=== PATIENT | female | born 1990 | race Two or more races ===

== ENCOUNTER 2017-10-02 22:27 | Emergency (ER) | payer OTHER ==
[~2017-10-02] VITALS: Ht 165.1 cm; Wt 61.7 kg
[~2017-10-02 22:27] MED LIST: CEFADROXIL500 MG PO; ORTHO TRI-7 DAYSX1
[2017-10-03] MEDS ORDERED: ZANTAC300 MG PO (03:32)
[2017-10-03] MEDS ORDERED: ZOFRAN ODT8 MG PO (03:32)
[2017-10-03] MEDS ORDERED: DICY20TA PO (03:32)
[2017-10-03] MEDS ORDERED: PROBIOTIC & AC1 EACH PO (03:32)
== END 2017-10-03 03:57 | disposition home or self-care (01) ==
LOC: ER 22:27
DX: K52.9 Noninfective gastroenteritis and colitis, unspecified (principal); E86.0 Dehydration

== ENCOUNTER 2017-10-05 13:46 | Emergency (ER) | payer OTHER ==
[~2017-10-05] VITALS: Ht 170.2 cm; Wt 60.8 kg
[~2017-10-05 13:46] MED LIST changes: +DICY20TA PO; +PROBIOTIC & AC1 EACH PO; +ZANTAC300 MG PO; +ZOFRAN ODT8 MG PO
== END 2017-10-05 17:25 | disposition home or self-care (01) ==
LOC: ER 13:46
DX: K52.9 Noninfective gastroenteritis and colitis, unspecified (principal)

== ENCOUNTER 2018-10-09 02:37 | Emergency (ER) | payer OTHER ==
[~2018-10-09] VITALS: Ht 170.2 cm; Wt 62.1 kg
[2018-10-09] MEDS ORDERED: MEDROLPACK PO (06:04)
[2018-10-09] MEDS ORDERED: CETIRIZINE HCL10 MG PO (06:04)
== END 2018-10-09 06:15 | disposition home or self-care (01) ==
LOC: ER 02:37
DX: T78.1XXA Other adverse food reactions, not elsewhere classified, initial encounter (principal); R21 Rash and other nonspecific skin eruption

== ENCOUNTER 2018-12-25 19:45 | Emergency (ER) | payer OTHER ==
[~2018-12-25] VITALS: Ht 170.2 cm; Wt 61.2 kg
[~2018-12-25 19:45] MED LIST changes: +CETIRIZINE HCL10 MG PO; +MEDROLPACK PO
== END 2018-12-25 20:54 | disposition home or self-care (01) ==
LOC: ER 19:45
DX: S61.226A Laceration with foreign body of right little finger without damage to nail, initial encounter (principal); W26.0XXA Contact with knife, initial encounter; Y93.89 Activity, other specified; Y92.090 Kitchen in other non-institutional residence as the place of occurrence of the external cause; Y99.8 Other external cause status

== ENCOUNTER → 2019-03-16 | Outpatient (CLI) | payer OTHER | END | disposition home or self-care (01) | LOC: SONOGRAMA 14:35 | DX: E04.1 Nontoxic single thyroid nodule (principal) ==

== ENCOUNTER 2019-06-14 10:04 | Outpatient (CLI) | payer OTHER | END 2019-06-14 15:34 | disposition home or self-care (01) | LOC: LAB 10:04 | DX: O09.892 Supervision of other high risk pregnancies, second trimester (principal); Z31.430 Encounter of female for testing for genetic disease carrier status for procreative management; Z31.5 Encounter for procreative genetic counseling ==

== ENCOUNTER 2019-07-31 09:18 | Outpatient (CLI) | payer OTHER | END 2019-07-31 10:00 | disposition home or self-care (01) | LOC: LAB 09:18 | DX: O09.892 Supervision of other high risk pregnancies, second trimester (principal) ==

== ENCOUNTER 2019-09-13 17:12 | Outpatient (CLI) | payer OTHER ==
[2019-09-13] MEDS ORDERED: PRENATABS RX T1 EACH PO (17:23)
[2019-09-14] MEDS ORDERED: ANTI-DIARRHEAL2 M1 PO (13:04)
[2019-09-14] MEDS ORDERED: ZOFRAN8 MG PO (13:04)
[2019-09-14] MEDS ORDERED: PEPCID AC20 MG PO (13:04)
== END 2019-09-14 13:39 | disposition home or self-care (01) ==
LOC: OBS/DEL 17:12
DX: O21.8 Other vomiting complicating pregnancy (principal); O35.8XX0 Maternal care for other (suspected) fetal abnormality and damage, not applicable or unspecified; O26.893 Other specified pregnancy related conditions, third trimester; R19.7 Diarrhea, unspecified

== ENCOUNTER → 2019-10-05 15:53 | Outpatient (CLI) | payer OTHER ==
[~2019-10-05 15:53] MED LIST changes: +ANTI-DIARRHEAL2 M1 PO; +PEPCID AC20 MG PO; +PRENATABS RX T1 EACH PO; +ZOFRAN8 MG PO
== END | disposition home or self-care (01) ==
LOC: LAB 15:53
DX: R51 Headache (principal); J20.8 Acute bronchitis due to other specified organisms; J10.89 Influenza due to other identified influenza virus with other manifestations; O09.892 Supervision of other high risk pregnancies, second trimester; O16.3 Unspecified maternal hypertension, third trimester; Z11.4 Encounter for screening for human immunodeficiency virus [HIV]

== ENCOUNTER 2019-11-01 09:07 | Inpatient (IN) | payer OTHER ==
[~2019-11-01] VITALS: Ht 170.2 cm; Wt 75.7 kg
== END 2019-11-15 09:45 | disposition home or self-care (01) | DRG 807 ==
LOC: LDR 11-13 08:31 → SURG-SUITE 11-13 13:54 → SURG 11-20 15:15
PROVIDERS: ADMIT Obstetrics & Gynecology
PROC: 10E0XZZ Delivery of Products of Conception, External Approach (ICD-10-PCS; principal; 2019-11-13)
PROC: 4A1HXFZ Monitoring of Products of Conception, Cardiac Rhythm, External Approach (ICD-10-PCS; 2019-11-13)
DX: O99.824 Streptococcus B carrier state complicating childbirth (principal); Z37.0 Single live birth; Z3A.39 39 weeks gestation of pregnancy

== ENCOUNTER 2020-12-02 13:54 | Outpatient (CLI) | payer OTHER | END 2020-12-02 14:26 | disposition home or self-care (01) | LOC: MAMO-SONO 13:54 → SONOGRAMA 13:54 | DX: N60.01 Solitary cyst of right breast (principal); N60.02 Solitary cyst of left breast; N64.89 Other specified disorders of breast; Z12.31 Encounter for screening mammogram for malignant neoplasm of breast; N83.8 Other noninflammatory disorders of ovary, fallopian tube and broad ligament ==

== ENCOUNTER 2022-11-16 05:55 | Day surgery (SDC) | payer OTHER | END 2022-11-16 15:25 | disposition home or self-care (01) | LOC: CIR.AMB 05:55 | PROVIDERS: ATTEND Obstetrics & Gynecology | DX: R87.613 High grade squamous intraepithelial lesion on cytologic smear of cervix (HGSIL) (principal); N72 Inflammatory disease of cervix uteri; Z91.013 Allergy to seafood ==

== ENCOUNTER 2022-11-27 19:57 | Inpatient (IN) | payer OTHER ==
[~2022-11-27] VITALS: Ht 167.6 cm; Wt 65.8 kg
--- NOTE | 2022-11-27 20:02 | NUR ---
PTE ALERTA,ESTABLE Y ORIENTADA.ESTA REFIERE QUE HOY EN LA TARDE COMENZO CON EL SANGRADO VAGINAL
--- NOTE | 2022-11-27 20:21 | NUR ---
PACIENTE EVALUADA POR DR. ELKE PEREZ ORDENA TRATAMIENTO. SE EDUCA A PACIENTE ACERCA DE TRATAMIENTO ORDENADO Y REFIERE ENTENDER. SE COLECTAN MUESTRAS DE LABORATORIO Y CANALIZACION MEDIANTE MEDIDAS ASEPTICAS. PACIENTE EN ESPERA DE RESULTADOS DE LABORATORIO
--- NOTE | 2022-11-27 20:39 | NUR ---
2019 SE CONTACTA A [facility] PARA CONOCER SI PTE POSEE HX, O REFIERE QUE NO. SE REQUIZAN DOS UNIDADES DE PRBCS'EN HOLD, [place]. 2024 SE COLECTAN TUBOS PILOTOS, BAJO MEDIDAS ASEPTICAS. 2034 SE COELCTA TIPO Y BHASKAR , BAJO MEDIDAS ASEPTICAS. SE ENTREGAN LOS MISMOS EN LABORATORIO [facility].
[2022-11-28] MEDS ORDERED: TANDEM PLUS CA1 EACH PO (07:39)
== END 2022-11-28 08:14 | disposition home or self-care (01) | DRG 747 ==
LOC: ER 19:57 → O/R 20:25 → OB/GYN 23:22
PROVIDERS: ADMIT Obstetrics & Gynecology Gynecology; ATTEND Obstetrics & Gynecology Gynecology
PROC: 0UQC7ZZ Repair Cervix, Via Natural or Artificial Opening (ICD-10-PCS; principal; 2022-11-27 22:00)
DX: N93.8 Other specified abnormal uterine and vaginal bleeding (principal); Z20.822 Contact with and (suspected) exposure to COVID-19